=== PATIENT | male | born 1960 | race Two or more races ===

== ENCOUNTER → 2024-09-12 | Outpatient (CLI) | payer OTHER ==
[~2024-09-12] MED LIST: DILT120C31 PO; DILT120C78 PO; ELIQ5TAB PO; FURO20TA2 PO; METH-1387 PO; METO100T5 PO; PANT40TA29 PO; POTA-149 PO; VALS1TAB66 PO
== END ==
LOC: M RAD 10:57
PROVIDERS: ATTEND Otolaryngology
DX: R22.1 Localized swelling, mass and lump, neck (principal)

== ENCOUNTER → 2025-09-05 | Outpatient (REF) | payer MEDICARE, OTHER | LOC: M SFHCDERM 16:07 | PROVIDERS: ATTEND Dermatology | DX: L08.9 Local infection of the skin and subcutaneous tissue, unspecified (principal) ==